=== PATIENT | male | born 1975 | race Caucasian/White ===

== ENCOUNTER 2020-06-19 18:41 | Emergency (ER) | payer OTHER ==
[~2020-06-19] VITALS: Ht 175.3 cm; Wt 86.6 kg
[2020-06-19] MEDS ORDERED: ASPI81TA86 PO (19:04)
[2020-06-19] MEDS ORDERED: HYDR25TAB PO (19:04)
[2020-06-19] MEDS ORDERED: LISI30TA4 PO (19:04)
[2020-06-19 19:16] LABS: BASO % 0.7 % (0.0-1.0); EOS # 0.1 10^3/uL (0.0-0.5); EOS % 2.3 % (0.0-3.0); HEMATOCRIT 43.1 % (42.0-52.0); HEMOGLOBIN 15.6 g/dl (13.5-17.5); LYMPH % 22.6 % (24.0-44.0); MEAN CORPUSCULAR HEMOGLOBIN 34.2 pg (27.0-33.0); MEAN CORPUSCULAR HGB CONC 36.2 g/dl (32.0-36.5); MEAN CORPUSCULAR VOLUME 94.5 fl (80.0-96.0); MONO # 0.5 10^3/uL (0.0-0.8); MONO % 11.1 % (0.0-5.0); NEUTROPHILS # 2.7 10^3/uL (1.5-8.5); NEUTROPHILS % 62.1 % (36.0-66.0); PLATELET COUNT, AUTOMATED 261 10^3/uL (150-450); RED BLOOD COUNT 4.56 10^6/uL (4.30-6.10); WHITE BLOOD COUNT 4.3 10^3/uL (4.0-10.0)
--- NOTE | 2020-06-19 19:20 | REPVR ---
PROCEDURE INFORMATION: Exam: XR Chest, 1 View Exam date and time: 06/19/2020 7:00 PM Age: 44 years old Clinical indication: Chest pain TECHNIQUE: Imaging protocol: XR of the chest Views: 1 view. COMPARISON: No relevant prior studies available. FINDINGS: Lungs: Unremarkable. No consolidation. No pulmonary edema. Pleural space: Unremarkable. No pleural effusion or pneumothorax is identified. Heart/Mediastinum: Unremarkable. No cardiomegaly. Bones/joints: Unremarkable. IMPRESSION: No acute findings. Electronically signed by: Brodie Velasquez On 06/19/2020 19:19:55 PM
[2020-06-19] MEDS ORDERED: MORPHINE 4 MG/ML 1ML VIAL/SYRINGE (J2270) IV ONE (19:30)
[2020-06-19 19:37] LABS: PROTHROMBIN TIME 13.4 SECONDS (11.8-14.0)
[2020-06-19 19:38] LABS: PARTIAL THROMBOPLASTIN TIME 28.1 SECONDS (25.0-38.4)
[2020-06-19 19:45] LABS: ALBUMIN 4.2 GM/DL (3.2-5.2); ALT/SGPT 319 U/L (12-78); BILIRUBIN,DIRECT 0.3 MG/DL (0.0-0.2); BILIRUBIN,TOTAL 0.6 MG/DL (0.2-1.0); BLOOD UREA NITROGEN 7 MG/DL (7-18); CALCIUM LEVEL 9.2 MG/DL (8.5-10.1); CARBON DIOXIDE LEVEL 27 MEQ/L (21-32); CHLORIDE LEVEL 93 MEQ/L (98-107); CK-MB VALUE MASS 2.6 NG/ML (<3.6); CPK CREATINE PHOSPHOKINASE 245 U/L (39-308); CREATININE FOR GFR 0.91 MG/DL (0.70-1.30); GLOMERULAR FILTRATION RATE > 60.0 (>60); GLUCOSE, FASTING 111 MG/DL (70-100); LIPASE 353 U/L (73-393); MB/CK RELATIVE INDEX 1.06 (< OR =4); POTASSIUM SERUM 3.5 MEQ/L (3.5-5.1); SODIUM LEVEL 128 MEQ/L (136-145); TOTAL PROTEIN 8.5 GM/DL (6.4-8.2); TROPONIN I < 0.02 NG/ML (< 0.10)
[2020-06-19] MEDS ORDERED: ISOVUE-370 76% 100ML VIAL As Ordered ONE (19:58)
--- NOTE | 2020-06-19 20:50 | REPVR ---
PROCEDURE INFORMATION: Exam: CT Angiography Chest With Contrast Exam date and time: 06/19/2020 8:08 PM Age: 44 years old Clinical indication: Chest pain TECHNIQUE: Imaging protocol: Computed tomographic angiography of the chest with intravenous contrast. 3D rendering (Not supervised by radiologist): MIP and/or 3D reconstructed images were created by the technologist. Radiation optimization: All CT scans at this facility use at least one of these dose optimization techniques: automated exposure control; mA and/or kV adjustment per patient size (includes targeted exams where dose is matched to clinical indication); or iterative reconstruction. Contrast material: ISOVUE 370; Contrast volume: 100 ml; Contrast route: INTRAVENOUS (IV); COMPARISON: CR PORTABLE CHEST X-RAY 06/19/2020 6:55 PM FINDINGS: Pulmonary arteries: No pulmonary embolism. Aorta: The thoracic aorta is intact and patent. There is no thoracic aortic aneurysm, pseudoaneurysm, penetrating atherosclerotic ulcer, intramural hematoma, or dissection. Great vessels off aortic arch: The brachiocephalic artery, imaged proximal portions of the common carotid arteries, imaged proximal portions of the vertebral arteries, and subclavian arteries are intact. No stenosis or occlusion of these vessels is noted. Tracheobronchial tree: Intact and patent. Lungs: There is a small sheet like opacity in the right upper lobe (image 31 of the axial series 402), which is felt to represent atelectasis. There is dependent atelectasis in the right lower lobe. The lungs are otherwise clear. Pleural space: Normal. No pneumothorax or pleural effusion. Heart: No cardiomegaly. No pericardial effusion. The ratio of the diameter of the right ventricle to the diameter of the left ventricle measures less than 1, which is within normal limits and there is no evidence for a right ventricular strain. Mediastinal space: No mediastinal mass, fluid collection, or pneumomediastinum. Lymph nodes: There are subcentimeter mediastinal lymph nodes. However, no abnormally enlarged lymph nodes measuring greater than 1 cm in short axis are noted. Diaphragm: Intact. Bones/joints: There is no fracture or dislocation. No suspicious osteolytic or osteoblastic lesion. Soft tissues: Unremarkable. No soft tissue fluid collection. Other findings: Refer to the CT abdomen and pelvis report on 06/19/2020 for details regarding the abdominal and pelvic findings. IMPRESSION: 1. No acute findings in the chest. No pulmonary embolism. 2. No thoracic aortic aneurysm, pseudoaneurysm, intramural hematoma, penetrating atherosclerotic ulcer, or dissection. Electronically signed by: Brodie Velasquez On 06/19/2020 20:49:58 PM
--- NOTE | 2020-06-19 20:50 | REPVR ---
PROCEDURE INFORMATION: Exam: CT Abdomen And Pelvis With Contrast Exam date and time: 06/19/2020 8:08 PM Age: 44 years old Clinical indication: Abdominal pain; Generalized; Additional info: Chest pain TECHNIQUE: Imaging protocol: Computed tomography of the abdomen and pelvis with intravenous contrast. Radiation optimization: All CT scans at this facility use at least one of these dose optimization techniques: automated exposure control; mA and/or kV adjustment per patient size (includes targeted exams where dose is matched to clinical indication); or iterative reconstruction. Contrast material: ISOVUE 370; Contrast volume: 100 ml; Contrast route: INTRAVENOUS (IV); COMPARISON: No relevant prior studies available. FINDINGS: Lungs: Refer to the CTA chest report on 06/19/2020 for details. Heart: Refer to the CTA chest report on 06/19/2020 for details. Diaphragm: Intact. Liver: The attenuation of the liver is more than 40 Hounsfield units lower in attenuation compared to the spleen, which is compatible with fatty liver infiltration. No liver lesion. The contour of the liver is smooth. No hepatomegaly. Gallbladder and bile ducts: No calcified gallstones are noted. No gallbladder wall thickening, pericholecystic fluid, or pericholecystic inflammatory changes are identified. No dilation of the bile ducts is noted. No calcified stones are seen in the common bile duct. There is focal fatty sparing adjacent to the gallbladder fossa. Pancreas: Normal. No dilation of the main pancreatic duct is noted. There is no inflammatory fat stranding around the pancreas to suggest acute pancreatitis. Spleen: The spleen is heterogeneous in appearance, which is likely secondary to the arterial timing of the contrast bolus. No splenomegaly. Adrenals: Normal. No adrenal mass is noted. Kidneys and ureters: The kidneys are normal in appearance. No renal lesion is noted. No stones are noted in the kidneys or ureters. There is no hydronephrosis or hydroureter. There are no wedge-shaped areas of low attenuation in the kidneys to suggest pyelonephritis. There is no renal abscess or perinephric fluid collection. Stomach and bowel: The stomach and small bowel are unremarkable. There is mild colonic diverticulosis without evidence for diverticulitis. There is no evidence for a bowel obstruction, colitis, pneumatosis intestinalis, intussusception, volvulus, or perforated viscus. Appendix: Normal. There is no evidence for appendicitis. Intraperitoneal space: No free air. No ascites. No asbcess. Retroperitoneal space: No fluid collection. No mass. Vasculature: The abdominal aorta is patent, normal in caliber, and there is no dissection. The iliac arteries, common femoral arteries, renal arteries, celiac artery, superior mesenteric artery, and inferior mesenteric artery are patent. There are mild atherosclerotic calcifications. The portal veins, splenic vein, superior mesenteric vein, inferior mesenteric vein, and renal veins are patent. Lymph nodes: No enlarged lymph nodes. Bladder: The partially distended urinary bladder is unremarkable. No stones or masses are seen in the bladder. Reproductive: The prostate gland and seminal vesicles are unremarkable. Bones/joints: There is no fracture or dislocation. No suspicious osteolytic or osteoblastic lesion. Soft tissues: Unremarkable. No hernia. IMPRESSION: 1. No acute findings in the abdomen or pelvis. 2. Fatty liver. 3. Mild colonic diverticulosis without evidence for diverticulitis. Electronically signed by: Brodie Velasquez On 06/19/2020 20:49:48 PM
[2020-06-19] MEDS ORDERED: KETOROLAC 30 MG/ML 1ML VIAL IV ONE (21:15)
--- NOTE | 2020-06-19 21:48 | REPVR ---
PROCEDURE INFORMATION: Exam: CT Lumbar Spine Without Contrast Exam date and time: 06/19/2020 9:28 PM Age: 44 years old Clinical indication: Pain TECHNIQUE: Imaging protocol: Computed tomography images of the lumbar spine without contrast. Radiation optimization: All CT scans at this facility use at least one of these dose optimization techniques: automated exposure control; mA and/or kV adjustment per patient size (includes targeted exams where dose is matched to clinical indication); or iterative reconstruction. COMPARISON: No relevant prior studies available. FINDINGS: Vertebrae: There are 5 non-rib bearing lumbar type vertebral bodies. The alignment of the lumbar spine is within normal limits. There is no fracture, pars defect, or subluxation. The vertebral body heights are preserved. Incidental note is made of congenital failure of fusion of the spinous process of L5 (spina bifida occulta). T10-T11: The disc height is preserved. No disc herniation, spinal canal stenosis, or neural foraminal stenosis is noted. The facet joints are unremarkable. T11-T12: The disc height is preserved. No disc herniation, spinal canal stenosis, or neural foraminal stenosis is noted. The facet joints are unremarkable. T12-L1: The disc height is preserved. No disc herniation is noted. No spinal canal stenosis, lateral recess stenosis, or neural foraminal stenosis is identified. The facet joints are unremarkable. L1-L2: The disc height is preserved. No disc herniation is noted. No spinal canal stenosis, lateral recess stenosis, or neural foraminal stenosis is identified. The facet joints are unremarkable. L2-L3: The disc height is preserved. No disc herniation is noted. No spinal canal stenosis, lateral recess stenosis, or neural foraminal stenosis is identified. The facet joints are unremarkable. There are endplate spurs projecting anteriorly. L3-L4: The disc height is preserved. No disc herniation is noted. No spinal canal stenosis, lateral recess stenosis, or neural foraminal stenosis is identified. The facet joints are unremarkable. L4-L5: The disc height is preserved. There is a right foraminal protrusion and mild osteoarthritis of the left facet joint. Mild right neural foraminal stenosis is present. No spinal canal stenosis, lateral recess stenosis, or left neural foraminal stenosis is identified. The facet joints are unremarkable. L5-S1: The disc height is preserved. No disc herniation is noted. No spinal canal stenosis, lateral recess stenosis, or neural foraminal stenosis is identified. The facet joints are unremarkable. Vasculature: No abdominal aortic aneurysm. Soft tissues: Unremarkable. No soft tissue fluid collection is noted. Limited liver: There is fatty infiltration of the liver. IMPRESSION: 1. No fracture or subluxation in the lumbar spine. 2. L4-L5: Mild right neural foraminal stenosis secondary to a right foraminal protrusion. Electronically signed by: Brodie Velasquez On 06/19/2020 21:47:42 PM
[2020-06-19 23:27] LABS: CK-MB VALUE MASS 2.1 NG/ML (<3.6); CPK CREATINE PHOSPHOKINASE 217 U/L (39-308); MB/CK RELATIVE INDEX 0.97 (< OR =4); TROPONIN I < 0.02 NG/ML (< 0.10)
[2020-06-19] MEDS ORDERED: NS 1,000 ML IV ONE (23:45)
[2020-06-20] MEDS ORDERED: traMADol 50 MG TAB (BULK 4 TAB ED) PO ONE (01:15)
[2020-06-20 02:17] VITALS: BP 126/71
--- NOTE | 2020-06-28 09:44 | ECGEPIP ---
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
--- NOTE | 2020-06-28 10:30 | ECGEPIP ---
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
== END 2020-06-20 02:19 | disposition home or self-care (01) ==
LOC: M ED 18:41
DX: R07.89 Other chest pain (principal); M54.5 Low back pain; R74.0 Nonspecific elevation of levels of transaminase and lactic acid dehydrogenase [LDH]; I10 Essential (primary) hypertension; Z79.899 Other long term (current) drug therapy; Z79.82 Long term (current) use of aspirin; F17.210 Nicotine dependence, cigarettes, uncomplicated
CPT/HCPCS: 71045; 71275; 72131; 74177; 80048; 80076; 82550; 82553; 83690; 85025; 85610; 85730; 93005; 93041; 94760; 96361; 96374; 96375; 99284; J1885; J2270; Q9967

== ENCOUNTER 2020-09-04 17:24 | Emergency (ER) | payer OTHER ==
[~2020-09-04] VITALS: Ht 175.3 cm; Wt 95.8 kg
[~2020-09-04 17:24] MED LIST: ASPI81TA86 PO; HYDR25TAB PO; LISI30TA4 PO
[2020-09-04] MEDS ORDERED: HYDR50TA70 PO (17:34)
[2020-09-04] MEDS ORDERED: ACAM0.05 PO (17:34)
[2020-09-04] MEDS ORDERED: PANT40TA29 (17:34)
[2020-09-04] MEDS ORDERED: BUSP10TA PO (17:34)
[2020-09-04] MEDS ORDERED: SUCR1TAB56 PO (17:34)
[2020-09-04] MEDS ORDERED: TAB-TAB3 PO (17:34)
[2020-09-04] MEDS ORDERED: FOLI1TAB11 PO (17:34)
[2020-09-04 18:13] LABS: BASO # 0.1 10^3/uL (0.0-0.2); BASO % 0.8 % (0.0-1.0); EOS # 0.2 10^3/uL (0.0-0.5); EOS % 2.9 % (0.0-3.0); HEMATOCRIT 41.1 % (42.0-52.0); HEMOGLOBIN 13.8 g/dl (13.5-17.5); LYMPH # 1.8 10^3/uL (1.5-5.0); LYMPH % 27.4 % (24.0-44.0); MEAN CORPUSCULAR HEMOGLOBIN 32.9 pg (27.0-33.0); MEAN CORPUSCULAR HGB CONC 33.6 g/dl (32.0-36.5); MEAN CORPUSCULAR VOLUME 97.9 fl (80.0-96.0); MONO # 0.6 10^3/uL (0.0-0.8); MONO % 9.1 % (0.0-5.0); NEUTROPHILS # 3.8 10^3/uL (1.5-8.5); NEUTROPHILS % 58.9 % (36.0-66.0); PLATELET COUNT, AUTOMATED 325 10^3/uL (150-450); WHITE BLOOD COUNT 6.5 10^3/uL (4.0-10.0)
[2020-09-04 18:26] LABS: INR 1.02; PARTIAL THROMBOPLASTIN TIME 29.3 SECONDS (24.2-38.5); PROTHROMBIN TIME 13.6 SECONDS (12.5-14.3)
[2020-09-04] MEDS ORDERED: MORPHINE 4 MG/ML 1ML VIAL/SYRINGE (J2270) IV ONE (18:30)
[2020-09-04] MEDS ORDERED: PANTOPRAZOLE 40MG VIAL (C9113 PER 1) IV ONE (18:30)
[2020-09-04] MEDS ORDERED: NS 1,000 ML IV ONE (18:30)
[2020-09-04 18:44] LABS: ALBUMIN 3.9 GM/DL (3.2-5.2); ALT/SGPT 246 U/L (12-78); AMYLASE 38 U/L (25-115); BILIRUBIN,DIRECT 0.1 MG/DL (0.0-0.2); BILIRUBIN,TOTAL 0.4 MG/DL (0.2-1.0); ETHYL ALCOHOL (ETHANOL) < 0.003 % (0.000-0.010); LIPASE 225 U/L (73-393); TOTAL PROTEIN 7.6 GM/DL (6.4-8.2)
[2020-09-04] MEDS ORDERED: ISOVUE-370 76% 100ML VIAL As Ordered ONE (18:46)
--- NOTE | 2020-09-04 20:31 | REPVR ---
PROCEDURE INFORMATION: Exam: CT Abdomen And Pelvis With Contrast Exam date and time: 09/04/2020 6:59 PM Age: 44 years old Clinical indication: Abdominal pain; Generalized; Additional info: Severe abdominal pain TECHNIQUE: Imaging protocol: Computed tomography of the abdomen and pelvis with intravenous contrast. Radiation optimization: All CT scans at this facility use at least one of these dose optimization techniques: automated exposure control; mA and/or kV adjustment per patient size (includes targeted exams where dose is matched to clinical indication); or iterative reconstruction. Contrast material: ISOVUE 370; Contrast volume: 100 ml; Contrast route: INTRAVENOUS (IV); COMPARISON: CT ABD/PEL W/IV CONTRAST ONLY 06/19/2020 7:57 PM FINDINGS: Lungs: The imaged portions of the lung bases are clear. The lungs were not fully imaged. Heart: No cardiomegaly or pericardial effusion. Mediastinal space: There is fluid in the esophagus, which can be seen with gastroesophageal reflux. Liver: The attenuation of the liver is more than 40 Hounsfield units lower in attenuation compared to the spleen, which is compatible with fatty liver infiltration. No liver lesion. The contour of the liver is smooth. No hepatomegaly. Gallbladder and bile ducts: No calcified gallstones are noted. No gallbladder wall thickening, pericholecystic fluid, or pericholecystic inflammatory changes are identified. No dilation of the bile ducts is noted. No calcified stones are seen in the common bile duct. Pancreas: Normal. No dilation of the main pancreatic duct is noted. There is no inflammatory fat stranding around the pancreas to suggest acute pancreatitis. Spleen: Normal. No splenomegaly is noted. Adrenal glands: Normal. No adrenal mass is noted. Kidneys and ureters: The kidneys are normal in appearance. No renal lesion is noted. No stones are noted in the kidneys or ureters. There is no hydronephrosis or hydroureter. There are no wedge-shaped areas of low attenuation in the kidneys to suggest pyelonephritis. There is no renal abscess or perinephric fluid collection. Stomach and bowel: The stomach is distended with ingested material. The small bowel is unremarkable. There is mild colonic diverticulosis without evidence for diverticulitis. There is no evidence for a bowel obstruction, colitis, pneumatosis intestinalis, intussusception, volvulus, or perforated viscus. There is a moderate amount of formed stool in the cecum, ascending colon, and transverse colon. A mild amount of formed stool is present in the descending colon and rectosigmoid. Appendix: Normal. There is no evidence for appendicitis. Intraperitoneal space: No free air. No ascites. No asbcess. Retroperitoneal space: No fluid collection. No mass. Vasculature: The abdominal aorta is patent, normal in caliber, and there is no dissection. The iliac arteries, common femoral arteries, renal arteries, celiac artery, superior mesenteric artery, and inferior mesenteric artery are patent. There are mild atherosclerotic calcifications. The portal veins, splenic vein, superior mesenteric vein, inferior mesenteric vein, and renal veins are patent. Lymph nodes: No enlarged lymph nodes. Urinary bladder: The distended urinary bladder is normal in appearance. No stones or masses are seen in the bladder. Reproductive: The prostate gland and seminal vesicles are unremarkable. Bones/joints: There is no fracture or dislocation. No suspicious osteolytic or osteoblastic lesion. Soft tissues: There is mild edema in the subcutaneous tissues lateral to both hips. No hernia or soft tissue fluid collection is noted. IMPRESSION: 1. Fluid in the esophagus, which can be seen with gastroesophageal reflux. 2. Mild colonic diverticulosis without evidence for diverticulitis. 3. Moderate amount of formed stool in the cecum, ascending colon, and transverse colon, and a mild amount of formed stool in descending colon and rectosigmoid. No bowel obstruction. 4. Fatty liver. Electronically signed by: Brodie Velasquez On 09/04/2020 20:31:04 PM
[2020-09-04] MEDS ORDERED: METOCLOPRAMIDE INJ 10MG/2ML VIAL (J2765 PER 1) IV ONE (20:45)
[2020-09-04] MEDS ORDERED: DICYCLOMINE INJ 20MG/2ML (J0500) IM ONE (20:45)
[2020-09-04] MEDS ORDERED: PROT1TAB2 PO (21:18)
[2020-09-04 21:23] VITALS: BP 124/73
[2020-09-04] MEDS ORDERED: GI COCKTAIL 50ML BTL(HYOSCYAMINE/MAALOX/LIDOCAINE VISCOUS)(1:3:1) PO ONE (21:30)
--- NOTE | 2020-09-05 06:36 | ECGEPIP ---
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
--- NOTE | 2020-09-05 14:39 | ED PDOC ---
Post-Departure Follow-Up dr pito alas and dr phelps faxed formal report of ct abd/p for fu Bon Espinoza MD Sep 05, 2020 14:39
[2020-09-09] MEDS ORDERED: MIRT-62 PO (12:58)
== END 2020-09-04 21:33 | disposition home or self-care (01) ==
LOC: M ED 17:24
DX: K29.70 Gastritis, unspecified, without bleeding (principal); K76.0 Fatty (change of) liver, not elsewhere classified; R10.13 Epigastric pain; R00.0 Tachycardia, unspecified; F10.10 Alcohol abuse, uncomplicated; K21.9 Gastro-esophageal reflux disease without esophagitis; I10 Essential (primary) hypertension; Z87.891 Personal history of nicotine dependence; Z79.899 Other long term (current) drug therapy
CPT/HCPCS: 74177; 80047; 80076; 81001; 82150; 83605; 83690; 85025; 85610; 85730; 93005; 96361; 96372; 96374; 96375; 99284; C9113; G0480; J0500; J2270; J2765; Q9967

== ENCOUNTER 2020-09-06 15:32 | Emergency (ER) | payer OTHER ==
[~2020-09-06] VITALS: Ht 175.3 cm; Wt 94.2 kg
[~2020-09-06 15:32] MED LIST changes: +ACAM0.05 PO; +BUSP10TA PO; +FOLI1TAB11 PO; +HYDR50TA70 PO; +PANT40TA29; +PROT1TAB2 PO; +SUCR1TAB56 PO; +TAB-TAB3 PO
[2020-09-06] MEDS ORDERED: MORPHINE 4 MG/ML 1ML VIAL/SYRINGE (J2270) IV ONE (16:00)
[2020-09-06] MEDS ORDERED: NS 1,000 ML IV ONE (16:00)
[2020-09-06] MEDS ORDERED: ONDANSETRON 4MG/2ML VIAL IV ONE (16:00)
[2020-09-06 16:15] VITALS: BP 143/90
--- NOTE | 2020-09-06 16:34 | REP ---
INDICATION: abdominal pain COMPARISON: 06/19/2020, 08/19/2020 TECHNIQUE: Portable AP view of the chest FINDINGS: The mediastinum and cardiac silhouette are stable and within normal limits for portable technique. The lung ruvalcaba are clear without acute focal consolidation, effusion, or pneumothorax. Skeletal structures are intact. IMPRESSION: No focal consolidation or effusion. <Electronically signed by Miltno Fung > 09/06/20 [id number]
[2020-09-06 16:38] LABS: BASO # 0.1 10^3/uL (0.0-0.2); EOS # 0.2 10^3/uL (0.0-0.5); HEMATOCRIT 41.9 % (42.0-52.0); HEMOGLOBIN 14.5 g/dl (13.5-17.5); LYMPH # 1.9 10^3/uL (1.5-5.0); LYMPH % 28.1 % (24.0-44.0); MEAN CORPUSCULAR HEMOGLOBIN 33.2 pg (27.0-33.0); MEAN CORPUSCULAR HGB CONC 34.6 g/dl (32.0-36.5); MEAN CORPUSCULAR VOLUME 95.9 fl (80.0-96.0); MONO # 0.5 10^3/uL (0.0-0.8); MONO % 6.7 % (0.0-5.0); NEUTROPHILS # 4.1 10^3/uL (1.5-8.5); NEUTROPHILS % 60.5 % (36.0-66.0); PLATELET COUNT, AUTOMATED 355 10^3/uL (150-450); RED BLOOD COUNT 4.37 10^6/uL (4.30-6.10); WHITE BLOOD COUNT 6.7 10^3/uL (4.0-10.0)
[2020-09-06 16:51] LABS: INR 1.04; PARTIAL THROMBOPLASTIN TIME 30.3 SECONDS (24.2-38.5); PROTHROMBIN TIME 13.8 SECONDS (12.5-14.3)
[2020-09-06] MEDS ORDERED: ISOVUE-370 76% 100ML VIAL As Ordered ONE (16:54)
[2020-09-06 17:03] LABS: ALBUMIN 3.9 GM/DL (3.2-5.2); BILIRUBIN,DIRECT 0.1 MG/DL (0.0-0.2); BILIRUBIN,TOTAL 0.4 MG/DL (0.2-1.0); TOTAL PROTEIN 7.9 GM/DL (6.4-8.2)
--- NOTE | 2020-09-06 17:32 | REPVR ---
PROCEDURE INFORMATION: Exam: CT Angiography Chest With Contrast Exam date and time: 09/06/2020 5:18 PM Age: 44 years old Clinical indication: Chest pain; Additional info: Midepigastric pain TECHNIQUE: Imaging protocol: Computed tomographic angiography of the chest with intravenous contrast. 3D rendering (Not supervised by radiologist): MIP and/or 3D reconstructed images were created by the technologist. Radiation optimization: All CT scans at this facility use at least one of these dose optimization techniques: automated exposure control; mA and/or kV adjustment per patient size (includes targeted exams where dose is matched to clinical indication); or iterative reconstruction. Contrast material: ISOVUE 370; Contrast volume: 100 ml; Contrast route: INTRAVENOUS (IV); COMPARISON: CT ANGIO CHEST 06/19/2020 7:57 PM FINDINGS: Pulmonary arteries: No filling defects within the main, lobar, segmental, and subsegmental pulmonary arterial branches. Aorta: No aortic aneurysm. No evidence of dissection. Lungs: Nonspecific focal region of subpleural ground-glass opacification in the lateral right lung apex, appearance most suggestive of atelectatic change. Similar finding present within the different region of the right upper lobe on prior CTA chest from 06/19/2020. Pleural space: No pleural effusion or pneumothorax. Heart: Unremarkable. No pericardial effusion. Lymph nodes: No enlarged lymph nodes. Bones/joints: No acute osseus lesion or fracture. Soft tissues: Unremarkable. IMPRESSION: 1. No CTA evidence of pulmonary embolism. 2. Nonspecific focal region of subpleural ground-glass opacification in the lateral right lung apex, appearance most suggestive of atelectatic change. Electronically signed by: Mic Garcia On 09/06/2020 17:31:34 PM
--- NOTE | 2020-09-06 17:35 | REPVR ---
PROCEDURE INFORMATION: Exam: CT Abdomen And Pelvis With Contrast Exam date and time: 09/06/2020 5:18 PM Age: 44 years old Clinical indication: Abdominal pain; Epigastric; Additional info: Midepigastric pain TECHNIQUE: Imaging protocol: Computed tomography of the abdomen and pelvis with intravenous contrast. Radiation optimization: All CT scans at this facility use at least one of these dose optimization techniques: automated exposure control; mA and/or kV adjustment per patient size (includes targeted exams where dose is matched to clinical indication); or iterative reconstruction. Contrast material: ISOVUE 370; Contrast volume: 100 ml; Contrast route: INTRAVENOUS (IV); COMPARISON: CT ABD/PEL W/IV CONTRAST ONLY 09/04/2020 6:56 PM FINDINGS: Liver: Diffuse hepatic steatosis. Gallbladder and bile ducts: Unremarkable. No ductal dilation. Pancreas: Unremarkable. No ductal dilation. Spleen: Unremarkable. Adrenal glands: Normal. No mass. Kidneys and ureters: No hydronephrosis or stones. Stomach and bowel: Stomach is unremarkable. No small bowel obstruction. Large bowel is unremarkable. Appendix: The appendix is normal. Intraperitoneal space: No pneumoperitoneum. No significant fluid collection. Vasculature: Mild atherosclerotic calcifications of the aorta and major branches. Lymph nodes: No enlarged lymph nodes. Urinary bladder: Unremarkable as visualized. Reproductive: Unremarkable as visualized. Bones/joints: No acute osseus lesion or fracture. Soft tissues: Unremarkable. IMPRESSION: Diffuse hepatic steatosis. Otherwise, no acute findings in the abdomen and pelvis. Correlate clinically with LFTs. Electronically signed by: Mic Garcia On 09/06/2020 17:34:50 PM
[2020-09-06] MEDS ORDERED: LORazepam 1 MG TAB PO STA (18:12)
[2020-09-06] MEDS ORDERED: ATIV1TAB7 PO (18:16)
--- NOTE | 2020-09-06 22:10 | ECGEPIP ---
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
[2020-09-07] MEDS ORDERED: PANT-23 PO (20:33)
[2020-09-07] MEDS ORDERED: LORA1TAB4 PO (20:33)
[2020-09-09] MEDS ORDERED: MIRT-62 PO (12:58)
== END 2020-09-06 18:53 | disposition home or self-care (01) ==
LOC: M ED 15:32
DX: R10.10 Upper abdominal pain, unspecified (principal); K29.70 Gastritis, unspecified, without bleeding; F41.9 Anxiety disorder, unspecified; R00.0 Tachycardia, unspecified; R74.01 Elevation of levels of liver transaminase levels; I10 Essential (primary) hypertension; K21.9 Gastro-esophageal reflux disease without esophagitis; F10.10 Alcohol abuse, uncomplicated; Z79.899 Other long term (current) drug therapy
CPT/HCPCS: 71045; 71275; 74177; 80047; 80076; 81001; 83605; 83690; 85025; 85610; 85730; 87040; 93005; 93041; 96361; 96374; 96375; 99284; J2270; J2405; Q9967

== ENCOUNTER 2020-09-07 14:06 | Inpatient (IN) | payer OTHER ==
[~2020-09-07] VITALS: Ht 175.3 cm; Wt 92.5 kg
[~2020-09-07 14:06] MED LIST changes: +ATIV1TAB7 PO
[2020-09-07 15:32] LABS: HEMATOCRIT 41.3 % (42.0-52.0); HEMOGLOBIN 14.1 g/dl (13.5-17.5); MEAN CORPUSCULAR HEMOGLOBIN 32.9 pg (27.0-33.0); MEAN CORPUSCULAR HGB CONC 34.1 g/dl (32.0-36.5); MEAN CORPUSCULAR VOLUME 96.5 fl (80.0-96.0); PLATELET COUNT, AUTOMATED 327 10^3/uL (150-450); RED BLOOD COUNT 4.28 10^6/uL (4.30-6.10)
[2020-09-07] MEDS ORDERED: LORazepam 1 MG TAB PO STA (15:54)
[2020-09-07 16:04] LABS: ACETAMINOPHEN LEVEL < 2.0 UG/ML (10.0-30.0); ALBUMIN 3.7 GM/DL (3.2-5.2); ALT/SGPT 233 U/L (12-78); AMPHETAMINES LEVEL URINE NEGATIVE (NEGATIVE); BARBITURATES URINE NEGATIVE (NEGATIVE); BENZODIAZEPINES URINE POSITIVE (NEGATIVE); BILIRUBIN,DIRECT 0.2 MG/DL (0.0-0.2); BILIRUBIN,TOTAL 0.6 MG/DL (0.2-1.0); BLOOD UREA NITROGEN 11 MG/DL (7-18); CALCIUM LEVEL 9.3 MG/DL (8.5-10.1); CANNABINOIDS URINE POSITIVE (NEGATIVE); CARBON DIOXIDE LEVEL 29 MEQ/L (21-32); CHLORIDE LEVEL 102 MEQ/L (98-107); CK-MB VALUE MASS 1.7 NG/ML (<3.6); COCAINE METABOLITE URINE NEGATIVE (NEGATIVE); CPK CREATINE PHOSPHOKINASE 299 U/L (39-308); CREATININE FOR GFR 1.03 MG/DL (0.70-1.30); ETHYL ALCOHOL (ETHANOL) < 0.003 % (0.000-0.010); GLOMERULAR FILTRATION RATE > 60.0 (>60); GLUCOSE, FASTING 86 MG/DL (70-100); LIPASE 118 U/L (73-393); MB/CK RELATIVE INDEX 0.57 (< OR =4); METHADONE URINE NEGATIVE (NEGATIVE); OPIATES URINE POSITIVE (NEGATIVE); PHENCYCLIDINE URINE NEGATIVE (NEGATIVE); SALICYLATE LEVEL 2.1 MG/DL (5.0-30.0); SODIUM LEVEL 137 MEQ/L (136-145); TOTAL PROTEIN 7.5 GM/DL (6.4-8.2); TROPONIN I < 0.02 NG/ML (< 0.10)
[2020-09-07] MEDS ORDERED: ACETAMINOPHEN 325 MG TAB PO ONE (18:00)
[2020-09-07] MEDS ORDERED: ACETAMINOPHEN TAB 650MG DOSE (2X325MG) PO PRN (19:45)
[2020-09-07] MEDS ORDERED: MAALOX 30 ML SUSP *UDC PO PRN (19:45)
[2020-09-07] MEDS ORDERED: MOM 30ML SUSPENSION UDC PO PRN (19:45)
[2020-09-07] MEDS ORDERED: OLANZapine ORAL DISINTEGRATING TAB 5MG PO PRN (19:45)
[2020-09-07] MEDS ORDERED: LORA1TAB4 PO (20:33)
[2020-09-07] MEDS ORDERED: PANT-23 PO (20:33)
[2020-09-07 21:34] VITALS: BP 114/73
--- NOTE | 2020-09-07 22:10 | ECGEPIP ---
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
[2020-09-07] MEDS: lisinopriL 10 MG TAB PO SCH (23:27)
[2020-09-07] MEDS: busPIRone 10 MG TAB PO SCH (23:27)
[2020-09-07] MEDS: PANTOPRAZOLE 40MG TAB (PROTONIX) PO SCH (23:27)
[2020-09-08] MEDS: ACAMPROSATE CALCIUM 333 MG TABLET (CAMPRAL) PO SCH ×4 (00:08→20:37)
[2020-09-08] MEDS: traZODone 50 MG TAB PO PRN ×2 (00:14→20:38)
[2020-09-08] MEDS: hydrOXYzine 50 MG TAB PO PRN (00:14)
[2020-09-08 06:22] VITALS: BP 120/61
[2020-09-08] MEDS: SUCRALFATE 1 GM TAB PO SCH ×3 (06:30→16:59)
[2020-09-08] MEDS: PANTOPRAZOLE 40MG TAB (PROTONIX) PO SCH ×2 (08:31→20:38)
[2020-09-08] MEDS: busPIRone 10 MG TAB PO SCH ×2 (08:31→20:38)
[2020-09-08] MEDS: FOLIC ACID 1 MG TAB PO SCH (08:31)
[2020-09-08] MEDS: hydroCHLOROthiazide 25 MG TAB PO SCH (08:32)
[2020-09-08] MEDS: NICOTINE 21MG/24HR 1 EA TRANSDERMAL TD SCH (09:37)
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
[2020-09-08] MEDS ORDERED: LORazepam 1 MG TAB PO PRN (11:15)
--- NOTE | 2020-09-08 11:49 | HPEPDOC ---
[facility] Medical History & Physical Date of Admission Sep 08, 2020 Date of Service: Sep 08, 2020 History and Physical Chief complaint: Presented to [facility] for suicidal ideation History of present illness: Patient is a 44-year-old male with a PMHx of HTN, Anxiety / Depression and GERD who presented to the emergency room with increased anxiety and panic a ttacks. Patient was admitted to the inpatient mental health unit under the care of psychiatry. Hospitalist service was called for medical evaluation. Patient reports a mild headache but denies any nausea, vomiting, chest pain, shortness breath, palpitations, abdominal pain consultation, diarrhea, or urinary discomfort. Patient reports his appetite has been fairly normal, but has noted an increase in his weight. Past Medical History: HTN, Anxiety / Depression and GERD Past Surgical History: Tonsils and adenoid resection Multiple broken bones Allergies: See below Medications: See below Family History: - Mother with history of diabetes and bipolar disorder - Father with reported psychiatric illness Social History: - Denies the use of illicit drugs; patient reports that he quit smoking 14 years ago but was a smoker of 30 years at one D - Patient also reports that he quit alcohol and was recently at a detox center and reports he was discharged last , has abstained from alcohol since then - Denies recent travel or sick contacts - Lives with [employer] - Occupation; currently unemployed Review of Systems: 10 point review of systems complete, all negative otherwise stated in HPI Physical exam: - Vitals: BP [120/61], HR [85], RR [18], Sat [100%RA], Temp [98.1F] - General: Lying in bed, Speaking in full sentences, AAOx3 - HEENT: NC, AT, PERRLA - CVS: RRR, +S1S2, - Murmurs / rubs / gallops - Lungs: Fair air entry bilaterally, No appreciable wheezing / rales / rhonchi - Abdomen: Soft, Non-distended, Non-tender, - Extremities: No lower extremity edema, No calf tenderness - Neuro: No focal motor or sensory deficit - Skin: No visible rashes Labs: See below Imaging: See below EKG: See below Assessment and Plan: Anxiety / Depression - Patient was admitted to the inpatient mental health unit under the care of psychiatry - Currently being managed by psychiatry Transaminitis - Patient has a history of transaminitis since 06/2020 - Ratio of AST:ALT of 1:2 - Will check hepatitis profile - Patient reports that he was recently in an alcohol detox center and was discharged last - Has abstained from alcohol use Hypertension - Blood pressures currently well controlled - c/w Lisinopril / HCTZ History of nicotine dependence - c/w Nicotine patch GERD - Will c/w Protonix and Carafate - Patient has been in the process of establishing care with gastroenterology as an outpatient for an EGD DVT prophylaxis - Will c/w early ambulation Female toy painter was present for the duration of this history and physical examination Thank you for this consultation; hospital service will now sign off, please reconsult as needed Vital Signs Vital Signs Date Time Temp Pulse Resp B/P (MAP) Pulse Ox O2 Delivery O2 Flow Rate FiO2 09/08/20 06:22 98.1 85 18 120/61 (80) 100 Room Air Laboratory Data Labs 24H Laboratory Tests 2 09/07/20 15:13: Nucleated Red Blood Cells % (auto) 0.0, Anion Gap 6L, Glomerular Filtration Rate > 60.0, Calcium Level 9.3, Total Bilirubin 0.6, Direct Bilirubin 0.2, Aspartate Amino Transf (AST/SGOT) 133H, Alanine Aminotransferase (ALT/SGPT) 233H, Alkaline Phosphatase 110, Total Creatine Kinase 299, Creatine Kinase MB 1.7, Creatine Kinase MB Relative Index 0.57, Troponin I < 0.02, Total Protein 7.5, Albumin 3.7, Albumin/Globulin Ratio 1.0, Lipase 118, Thyroid Stimulating Hormone (TSH) 1.710, Salicylates Level 2.1L, Urine Opiates Screen POSITIVEH, Urine Methadone Screen NEGATIVE, Acetaminophen Level < 2.0L, Urine Barbiturates Screen NEGATIVE, Urine Phencyclidine Screen NEGATIVE, Urine Amphetamines Screen NEGATIVE, Urine Benzodiazepines Screen POSITIVEH, Urine Cocaine Metabolite Screen NEGATIVE, Urine Cannabinoids Screen POSITIVEH, Ethyl Alcohol Level < 0.003 09/07/20 17:52: Coronavirus (COVID-19)(PCR) NEGATIVE CBC/BMP Laboratory Tests 09/07/20 15:13 Home Medications Scheduled Acamprosate Calcium (Acamprosate Calcium) 333 Mg Tablet.dr, 666 MG PO TID Buspirone HCl (Buspirone HCl) 10 Mg Tablet, 10 MG PO BID Folic Acid (Folic Acid) 1 Mg Tablet, 1 MG PO DAILY Hydrochlorothiazide (Hydrochlorothiazide) 25 Mg Tablet, 25 MG PO DAILY Lisinopril (Lisinopril) 30 Mg Tablet, 30 MG PO QHS Multivitamin (Tab-A-Juni) 1 Each Tablet, 1 TAB PO DAILY Pantoprazole Sodium (Pantoprazole Sodium) 40 Mg Tablet.dr, 40 MG PO BID Sucralfate (Sucralfate) 1 Gm Tablet, 1 GM PO AC Scheduled PRN Hydroxyzine HCl (Hydroxyzine HCl) 50 Mg Tablet, 50 MG PO DAILY PRN for ANXIETY Lorazepam (Lorazepam) 1 Mg Tablet, 1 MG PO BID PRN for ANXIETY Allergies Coded Allergies: No Known Allergies (Verified Allergy, Unknown, 06/19/20) DAISY CHAMORRO MD Sep 08, 2020 11:49
[2020-09-08] MEDS ORDERED: PROPRANOLOL 20 MG TAB PO ONE (12:00)
[2020-09-08 12:13] VITALS: BP 136/80
[2020-09-08 13:04] LABS: HEPATITIS B SURFACE ANTIGEN NEGATIVE (NEGATIVE)
[2020-09-08 13:32] LABS: HEPATITIS B CORE ANTIBODY IGM NEGATIVE (NEGATIVE)
[2020-09-08 13:34] LABS: HEPATITIS A ANTIBODY IGM NEGATIVE (NEGATIVE)
[2020-09-08 16:12] VITALS: BP 109/58
[2020-09-08] MEDS ORDERED: clonazePAM 1 MG TAB PO ONE (20:00)
[2020-09-08 20:40] VITALS: BP 124/83
[2020-09-08] MEDS: lisinopriL 10 MG TAB PO SCH (20:40)
[2020-09-08] MEDS ORDERED: MIRTAZAPINE 7.5MG PER 1/2 TABLET PO SCH (21:00)
[2020-09-09] MEDS ORDERED: MIRTAZAPINE 7.5MG PER 1/2 TABLET PO SCH
[2020-09-09] MEDS: SUCRALFATE 1 GM TAB PO SCH ×2 (06:33→12:01)
[2020-09-09 06:47] VITALS: BP 105/65
[2020-09-09] MEDS: hydroCHLOROthiazide 25 MG TAB PO SCH (08:23)
[2020-09-09] MEDS: busPIRone 10 MG TAB PO SCH (08:23)
[2020-09-09] MEDS: FOLIC ACID 1 MG TAB PO SCH (08:23)
[2020-09-09] MEDS: PANTOPRAZOLE 40MG TAB (PROTONIX) PO SCH (08:23)
[2020-09-09] MEDS: ACAMPROSATE CALCIUM 333 MG TABLET (CAMPRAL) PO SCH (08:23)
[2020-09-09] MEDS: NICOTINE 21MG/24HR 1 EA TRANSDERMAL TD SCH (08:23)
[2020-09-09] MEDS: hydrOXYzine 50 MG TAB PO PRN (12:01)
--- NOTE | 2020-09-09 12:37 | MHDSPDOC ---
[facility] Discharge Summary Discharge Summary DATE OF ADMISSION: Sep 07, 2020 at 19:33 DATE OF DISCHARGE:Sep 09, 2020 at 13:50 DISCHARGE DIAGNOSES: PTSD, chronic alcohol use disorder, unspecified CONSULTANTS INVOLVED:[ None (basic hospitalist screening)] REASON FOR ADMISSION & TREATMENT AND PROGRESS ON THE UNIT : . The patient was admitted on a voluntary status, he had no suicidal or homicidal ideation and reportedly did not meet criteria for involuntary care, he was admitted as he had requested, however he did quickly request a leave, he was detained for further treatment as his symptoms were quite intense. He was started on merit has been some .5 mg nightly with some positive effects. He was given a Klonopin taper as he was not appropriate for benzodiazepine treatments. Given that he has significant alcohol use problems and has only 3 weeks of sobriety from recent detox. He is given 1 mg of Klonopin to self taper off of Ativan which he intermittently uses. Subsequently, he made some improvements denied suicidality through the entirety of his admission, spoke to his significant other, of which there is no concerns of suicide, no access to firearms and discussed with her being a sober support person with disulfiram as well as discussed with the patient. We gave him a single dose of his mirtazapine as all pharmacies are closed on the date of discharge, with his significant other's understanding that she would help him take his disulfiram to improve his chances of sobriety as she reported that this was her primary concern for him. DISCHARGE ASSESSMENT[improved] Legal status considerations: The patient at the time of discharge did not meet criteria for involuntary admission/extension due to having a improved mental status exam, improved insight into the situation, They are engaged in the discharge process, as well as being friendly and amenable in behavioral control and havent been engaging in any observed concerning behavior or ideation recently. They decline voluntary extension/admission at this time and must be discharged in good ronaldo, as Im unable to make a case for holding the patient against their will. They may have historical risk factors of admissions and other interactions with psychiatry however, those are not modifiable from a clinical perspective. The patient will need to be discharged in good ronaldo. MENTAL STATUS EXAMINATION ON DISCHARGE: General: [Well dressed with good hygiene] Speech: [Spontaneous and fluid] Thought processes: [Linear and logical] Thought content: [Future orientated] Abstract reasoning, and computation: [Intact] Description of associations: [Intact] Description of abnormal or psychotic thoughts:[Denies any suicidal or homicidal ideation. Denies any auditory or visual hallucinations. Does not appear to be responding to internal stimuli. Does not appear to be endorsing any bizarre or paranoid ideation.] Judgment: improved Insight: improved Orientation: [Alert and orientated 3] Recent and remote memory: [Intact] Attention span and concentration: [Intact] Fund of knowledge: [Adequate] Mood: ["okay"] Affect: mildly anxious, but much improved PLAN/FOLLOWUP ARRANGEMENTS: Follow up appointments made (PCP and MH in 5 days of D/C date) and safety plan completed. Safety Planning aspects completed prior to discharge [Medication supplies limited to 7 days with 4 refills to prevent accumulation to OD]-with exception of disulfiram, which was given as a 30 day supply so that he would be more likely to continue with it as his fiance will help him take it consistently [Family contact completed, educated on safe practices, instructed on removal and mitigation of dangerous means] [RN reviewed crisis hotline information and other aspects to empower patient to access care in interim before next appointment.] The amount of time spent in the coordination of care for this patient was approximately 30 minutes. Vital Signs/I&Os Vital Signs Date Time Temp Pulse Resp B/P (MAP) Pulse Ox O2 Delivery O2 Flow Rate FiO2 09/09/20 06:47 97.5 86 18 105/65 (78) 97 Room Air Medications Scheduled Acamprosate Calcium (Acamprosate Calcium) 333 Mg Tablet.dr, 666 MG PO TID, (Reported) Buspirone HCl (Buspirone HCl) 10 Mg Tablet, 10 MG PO BID, (Reported) Disulfiram (Disulfiram) 250 Mg Tablet, 1 TAB PO DAILY for alcohol for 30 Days, #30 Folic Acid (Folic Acid) 1 Mg Tablet, 1 MG PO DAILY, (Reported) Hydrochlorothiazide (Hydrochlorothiazide) 25 Mg Tablet, 25 MG PO DAILY, (Reported) Lisinopril (Lisinopril) 30 Mg Tablet, 30 MG PO QHS, (Reported) Mirtazapine (Remeron) 15 Mg Tablet, 7.5 MG PO QHS for mood for 7 Days, #7 Multivitamin (Tab-A-Juni) 1 Each Tablet, 1 TAB PO DAILY, (Reported) Nicotine (Nicotine Patch) 21 Mg Patch.td24, 1 PATCH TD DAILY for tobacco for 30 Days, #30 Pantoprazole Sodium (Pantoprazole Sodium) 40 Mg Tablet.dr, 40 MG PO BID, (Reported) Sucralfate (Sucralfate) 1 Gm Tablet, 1 GM PO AC, (Reported) Scheduled PRN Hydroxyzine HCl (Hydroxyzine HCl) 50 Mg Tablet, 50 MG PO DAILY PRN for ANXIETY, (Reported) Allergies Coded Allergies: No Known Allergies (Verified Allergy, Unknown, 06/19/20) MARGARITA HUMPHRIES DO Sep 09, 2020 12:37
[2020-09-09] MEDS ORDERED: REME15TA PO (12:58)
[2020-09-09] MEDS ORDERED: NICO21PAT TD (12:58)
[2020-09-09] MEDS ORDERED: DISU250T PO (12:58)
== END 2020-09-09 13:50 | disposition home or self-care (01) | DRG 755 ==
LOC: M ED 14:06 → M ED INP 19:33 → M PSY 20:45
PROVIDERS: ADMIT Psychiatry & Neurology Psychiatry; ATTEND Psychiatry & Neurology Addiction Medicine
DX: F43.11 Post-traumatic stress disorder, acute (principal); F10.11 Alcohol abuse, in remission; R74.01 Elevation of levels of liver transaminase levels; I10 Essential (primary) hypertension; Z62.810 Personal history of physical and sexual abuse in childhood; K21.9 Gastro-esophageal reflux disease without esophagitis; Z87.891 Personal history of nicotine dependence; Z79.899 Other long term (current) drug therapy

== ENCOUNTER → 2020-12-22 | Outpatient (CLI) | payer OTHER ==
[~2020-12-22] MED LIST changes: +DISU250T PO; +HYDR-3490 PO; -HYDR25TAB PO; +LORA1TAB4 PO; +MIRT-62 PO; +NICO21PAT TD; +PANT-23 PO
[2020-12-22 12:57] LABS: BASO % 0.5 % (0.0-1.0); EOS # 0.1 10^3/uL (0.0-0.5); EOS % 1.2 % (0.0-3.0); HEMATOCRIT 42.3 % (42.0-52.0); HEMOGLOBIN 14.8 g/dl (13.5-17.5); LYMPH # 1.5 10^3/uL (1.5-5.0); LYMPH % 25.6 % (24.0-44.0); MEAN CORPUSCULAR HEMOGLOBIN 31.4 pg (27.0-33.0); MEAN CORPUSCULAR VOLUME 89.8 fl (80.0-96.0); MONO # 0.5 10^3/uL (0.0-0.8); MONO % 8.3 % (2.0-8.0); NEUTROPHILS # 3.7 10^3/uL (1.5-8.5); NEUTROPHILS % 63.7 % (36.0-66.0); PLATELET COUNT, AUTOMATED 309 10^3/uL (150-450); RED BLOOD COUNT 4.71 10^6/uL (4.30-6.10); WHITE BLOOD COUNT 5.8 10^3/uL (4.0-10.0)
[2020-12-22 13:27] LABS: ALBUMIN 4.5 GM/DL (3.2-5.2); ALT/SGPT 33 U/L (12-78); BILIRUBIN,DIRECT 0.1 MG/DL (0.0-0.2); BILIRUBIN,TOTAL 0.3 MG/DL (0.2-1.0); BLOOD UREA NITROGEN 12 MG/DL (7-18); CREATININE FOR GFR 0.88 MG/DL (0.70-1.30); FERRITIN 102 NG/ML (26-388); GLOMERULAR FILTRATION RATE > 60.0 (>60); IRON (FE) 53 UG/DL (65-175); PERCENT SATURATION 14.9 % (19.7-50.0); TOTAL IRON BINDING CAPACITY 355 UG/DL (250-450); TOTAL PROTEIN 7.9 GM/DL (6.4-8.2)
[2020-12-22 13:44] LABS: HEPATITIS B SURFACE ANTIGEN NEGATIVE (NEGATIVE)
[2020-12-24 06:07] LABS: ANTI-MITOCHONDRIAL ANTIBODY <20.0 Units (0.0-20.0); ANTI-SMOOTH MUSCLE ANTIBODY 7 Units (0-19); ANTINUCLEAR ANTIBODIES DIRECT Negative (Negative); HEPATITIS A IgG TOTAL Negative (Negative); HEPATITIS B CORE ANTIBODY IGG Positive (Negative); IGASUB2 244.2 mg/dL (73.2-301.2); IGASUB3 95.1 mg/dL (13.4-97.9); IgA SERUM (part of Subclasses) 303 mg/dL (90-386); LIVER-KIDNEY MICROSOMAL ABY <20.1 Units (0.0-20.0); TISSUE TRANSGLUTAMINASE IgA <2 U/mL (0-3)
[2020-12-24 12:54] LABS: HEPATITIS C VIRUS ABY INDEX < 0.0 INDEX (<0.8)
== END ==
LOC: M LAB 11:19
PROVIDERS: ATTEND Internal Medicine Gastroenterology
DX: R94.5 Abnormal results of liver function studies (principal); R10.13 Epigastric pain

== ENCOUNTER → 2020-12-23 | Outpatient (REF) | payer OTHER | LOC: M LAB REF 09:56 | PROVIDERS: ATTEND Internal Medicine Gastroenterology | DX: R94.5 Abnormal results of liver function studies (principal); R10.13 Epigastric pain ==

== ENCOUNTER → 2021-01-11 | Outpatient (CLI) | payer OTHER ==
--- NOTE | 2021-01-12 04:40 | REP ---
INDICATION: CHRONIC BACK PAIN WITH RECENT SEVERE EXACERBATION COMPARISON: CT dated 06/19/2020 TECHNIQUE: AP, lateral, bilateral oblique, and coned-down views of the lumbar spine. FINDINGS: Alignment and lordosis maintained. Vertebral bodies are intact. Disc spaces are relatively normal/age-appropriate. No acute fracture/compression injury or subluxation. No obvious spondylolysis or spondylolisthesis. Relatively mild early degenerative changes are identified including subtle sclerosis and very minimal early spurring primarily involving the L2-3 and superior L4 endplates. IMPRESSION: Minimal degenerative changes relatively stable compared with CT dated 06/19/2020 <Electronically signed by Milton Fung > 01/12/21 0431
== END ==
LOC: M RAD 13:04
PROVIDERS: ATTEND Physician Assistant
DX: M25.78 Osteophyte, vertebrae (principal); M54.5 Low back pain

== ENCOUNTER → 2021-01-13 | Outpatient (REF) | payer OTHER | LOC: M LAB REF 15:19 | PROVIDERS: ATTEND Surgery | DX: L72.3 Sebaceous cyst (principal) ==

== ENCOUNTER → 2021-01-17 | Outpatient (CLI) | payer OTHER | LOC: M LABSMTC 10:44 | PROVIDERS: ATTEND Anesthesiology | DX: Z01.812 Encounter for preprocedural laboratory examination (principal) ==

== ENCOUNTER 2021-01-21 09:53 | Day surgery (SDC) | payer OTHER ==
[~2021-01-21] VITALS: Ht 177.8 cm; Wt 87.5 kg
[~2021-01-21 09:53] MED LIST changes: +LIDOCAINE 2% 100MG/5ML SDV (FOR ANES.) As Ordered ONE; +NS 1,000 ML IV ONE; +fentaNYL 100 MCG/2 ML INJECTION (J3010) As Ordered ONE; +propofoL 500 MG/50 ML VIAL As Ordered ONE
[2021-01-21] MEDS ORDERED: propofoL 200 MG/20 ML VIAL As Ordered ONE ×2 (11:02→23:26)
[2021-01-21 11:57] VITALS: BP 130/69
--- NOTE | 2021-01-21 12:22 | ROOR ---
Patient Name: Anant Lu Procedure Date: 01/21/2021 10:28 AM Date of : 1975 Age: 45 Room: [facility] Gender: Male Note Status: Finalized Procedure: Upper GI endoscopy Indications: Epigastric abdominal pain Providers: Ronaldo Lagos MD Referring MD: ANNABEL ROGERS DO Requesting Provider: Medicines: Monitored Anesthesia Care Complications: No immediate complications. Procedure: Pre-Anesthesia Assessment: - Prior to the procedure, a History and Physical was performed, and patient medications and allergies were reviewed. The patient is competent. The risks and benefits of the procedure and the sedation options and risks were discussed with the patient. All questions were answered and informed consent was obtained. Patient identification and proposed procedure were verified by the physician, the nurse and the anesthesiologist in the procedure room. Mental Status Examination: alert and oriented. Airway Examination: normal oropharyngeal airway and neck mobility. Respiratory Examination: clear to auscultation. CV Examination: normal. Prophylactic Antibiotics: The patient does not require prophylactic antibiotics. Prior Anticoagulants: The patient has taken no previous anticoagulant or antiplatelet agents. ASA Grade Assessment: II - A patient with mild systemic disease. After reviewing the risks and benefits, the patient was deemed in satisfactory condition to undergo the procedure. The anesthesia plan was to use monitored anesthesia care (MAC). Immediately prior to administration of medications, the patient was re-assessed for adequacy to receive sedatives. The heart rate, respiratory rate, oxygen saturations, blood pressure, adequacy of pulmonary ventilation, and response to care were monitored throughout the procedure. The physical status of the patient was re-assessed after the procedure. The Endoscope was introduced through the mouth, and advanced to the second part of duodenum. The upper GI endoscopy was accomplished without difficulty. The patient tolerated the procedure well. Findings: Patchy, white plaques were found in the middle third of the esophagus and in the lower third of the esophagus. Cells for cytology were obtained by brushing. Verification of patient identification for the specimen was done by the physician and nurse using the patient's name, date and medical record number. Estimated blood loss was minimal. The Z-line was irregular and was found 41 cm from the incisors. Scattered mild inflammation characterized by erythema, friability and granularity was found in the gastric antrum. Biopsies were taken with a cold forceps for Helicobacter pylori testing. The duodenal bulb and second portion of the duodenum were normal. Impression: - Esophageal plaques were found, suspicious for candidiasis. Cells for cytology obtained. - Z-line irregular, 41 cm from the incisors. - Gastritis. Biopsied. - Normal duodenal bulb and second portion of the duodenum. Recommendation: - Patient has a contact number available for emergencies. The signs and symptoms of potential delayed complications were discussed with the patient. Return to normal activities tomorrow. Written discharge instructions were provided to the patient. - High fiber diet. - Continue present medications. - Follow an antireflux regimen. - Await pathology results. - Telephone GI clinic for pathology results in 2 weeks. - Return to primary care physician. Procedure Code(s): --- Professional --- 71748, Esophagogastroduodenoscopy, flexible, transoral; with biopsy, single or multiple Diagnosis Code(s): --- Professional --- K22.9, Disease of esophagus, unspecified K22.8, Other specified diseases of esophagus K29.70, Gastritis, unspecified, without bleeding R10.13, Epigastric pain CPT copyright 2019 [employer]. All rights reserved. The codes documented in this report are preliminary and upon surgical coder review may be revised to meet current compliance requirements. Ronaldo Lagos MD Ronaldo Lagos MD 01/21/2021 12:21:55 PM Electronically signed by Ronaldo Lagos MD Number of Addenda: 0 Note Initiated On: 01/21/2021 10:28 AM Estimated Blood Loss: Estimated blood loss was minimal.
--- NOTE | 2021-01-21 12:29 | ROOR ---
Patient Name: Anant Lu Procedure Date: 01/21/2021 10:28 AM Date of : 1975 Age: 45 Room: [facility] Gender: Male Note Status: Finalized Procedure: Colonoscopy Indications: Screening for colorectal malignant neoplasm Providers: Ronaldo Lagos MD Referring MD: ANNABEL ROGERS DO Requesting Provider: Medicines: Monitored Anesthesia Care Complications: No immediate complications. Procedure: Pre-Anesthesia Assessment: - Prior to the procedure, a History and Physical was performed, and patient medications and allergies were reviewed. The patient is competent. The risks and benefits of the procedure and the sedation options and risks were discussed with the patient. All questions were answered and informed consent was obtained. Patient identification and proposed procedure were verified by the physician, the nurse and the anesthesiologist in the procedure room. Mental Status Examination: alert and oriented. Airway Examination: normal oropharyngeal airway and neck mobility. Respiratory Examination: clear to auscultation. CV Examination: normal. Prophylactic Antibiotics: The patient does not require prophylactic antibiotics. Prior Anticoagulants: The patient has taken no previous anticoagulant or antiplatelet agents. ASA Grade Assessment: II - A patient with mild systemic disease. After reviewing the risks and benefits, the patient was deemed in satisfactory condition to undergo the procedure. The anesthesia plan was to use monitored anesthesia care (MAC). Immediately prior to administration of medications, the patient was re-assessed for adequacy to receive sedatives. The heart rate, respiratory rate, oxygen saturations, blood pressure, adequacy of pulmonary ventilation, and response to care were monitored throughout the procedure. The physical status of the patient was re-assessed after the procedure. The Colonoscope was introduced through the anus and advanced to the terminal ileum, with identification of the appendiceal orifice and IC valve. The colonoscopy was performed without difficulty. The patient tolerated the procedure well. The quality of the bowel preparation was good. The terminal ileum, ileocecal valve, appendiceal orifice, and rectum were photographed. Scope insertion time was 3 minutes. Scope withdrawal time was 8 minutes. The total duration of the procedure was 12 minutes. Findings: The perianal and digital rectal examinations were normal. The terminal ileum appeared normal. Five sessile polyps were found in the recto-sigmoid colon, transverse colon and ascending colon. The polyps were 4 to 8 mm in size. These polyps were removed with a cold snare. Resection and retrieval were complete. Verification of patient identification for the specimen was done by the physician and nurse using the patient's name, date and medical record number. Estimated blood loss was minimal. A few small-mouthed diverticula were found in the sigmoid colon. There was no evidence of diverticular bleeding. Non-bleeding external and internal hemorrhoids were found during retroflexion. The hemorrhoids were medium-sized. Impression: - The examined portion of the ileum was normal. - Five 4 to 8 mm polyps at the recto-sigmoid colon, in the transverse colon and in the ascending colon, removed with a cold snare. Resected and retrieved. - Mild diverticulosis in the sigmoid colon. There was no evidence of diverticular bleeding. - Non-bleeding external and internal hemorrhoids. Recommendation: - Patient has a contact number available for emergencies. The signs and symptoms of potential delayed complications were discussed with the patient. Return to normal activities tomorrow. Written discharge instructions were provided to the patient. - High fiber diet. - Continue present medications. - Await pathology results. - Repeat colonoscopy in 3 - 5 years for surveillance based on pathology results. - Telephone GI clinic for pathology results in 2 weeks. - Return to primary care physician. Procedure Code(s): --- Professional --- 12306, Colonoscopy, flexible; with removal of tumor(s), polyp(s), or other lesion(s) by snare technique Diagnosis Code(s): --- Professional --- Z12.11, Encounter for screening for malignant neoplasm of colon K64.8, Other hemorrhoids K63.5, Polyp of colon K57.30, Diverticulosis of large intestine without perforation or abscess without bleeding CPT copyright 2019 [employer]. All rights reserved. The codes documented in this report are preliminary and upon process analyst review may be revised to meet current compliance requirements. Ronaldo Lagos MD Ronaldo Lagos MD 01/21/2021 12:28:27 PM Electronically signed by Ronaldo Lagos MD Number of Addenda: 0 Note Initiated On: 01/21/2021 10:28 AM Estimated Blood Loss: Estimated blood loss was minimal.
[2021-01-21] MEDS ORDERED: ROCURONIUM BROMIDE 50 MG/5 ML VIAL As Ordered ONE (20:50)
[2021-01-21] MEDS ORDERED: LIDOCAINE 2% 100MG/5ML SDV (FOR ANES.) As Ordered ONE (20:50)
[2021-01-21] MEDS ORDERED: MIDAZOLAM INJ 2MG/2ML VIAL (J2250 PER 1MG) As Ordered ONE (20:51)
[2021-01-21] MEDS ORDERED: fentaNYL 100 MCG/2 ML INJECTION (J3010) As Ordered ONE (20:51)
[2021-01-21] MEDS ORDERED: dexameTHASONE 4 MG/ML 1ML VIAL (J1100 PER 1MG) As Ordered ONE (20:52)
[2021-01-21] MEDS ORDERED: ONDANSETRON 4MG/2ML VIAL As Ordered ONE (20:52)
== END 2021-01-21 12:31 | disposition home or self-care (01) ==
LOC: M OPP 09:53
PROVIDERS: ATTEND Internal Medicine Gastroenterology
DX: Z12.11 Encounter for screening for malignant neoplasm of colon (principal); K52.9 Noninfective gastroenteritis and colitis, unspecified; R10.13 Epigastric pain; K63.5 Polyp of colon; K57.30 Diverticulosis of large intestine without perforation or abscess without bleeding; K64.8 Other hemorrhoids; D13.1 Benign neoplasm of stomach; K22.8 Other specified diseases of esophagus; K29.70 Gastritis, unspecified, without bleeding; I10 Essential (primary) hypertension; F41.9 Anxiety disorder, unspecified; F17.210 Nicotine dependence, cigarettes, uncomplicated; Z79.899 Other long term (current) drug therapy
CPT/HCPCS: 43239; 45385; 88104; 88305; J3010

== ENCOUNTER 2021-05-09 11:57 | Emergency (ER) | payer OTHER ==
[~2021-05-09] VITALS: Ht 175.3 cm; Wt 96.8 kg
[~2021-05-09 11:57] MED LIST changes: -LIDOCAINE 2% 100MG/5ML SDV (FOR ANES.) As Ordered ONE; -NS 1,000 ML IV ONE; -fentaNYL 100 MCG/2 ML INJECTION (J3010) As Ordered ONE; -propofoL 500 MG/50 ML VIAL As Ordered ONE
--- NOTE | 2021-05-09 12:38 | REP ---
INDICATION: CHEST PAIN. COMPARISON: Comparison chest x-ray September 06, 2020. TECHNIQUE: Portable upright AP chest radiograph. FINDINGS: The lungs are well inflated and free of infiltrate. Pleural angles are sharp. Heart size is normal. Pulmonary vasculature is not increased. EKG monitoring electrodes are seen. IMPRESSION: No active disease. <Electronically signed by Layo Sierra > 05/09/21 [id number]
[2021-05-09 12:48] LABS: BASO % 0.7 % (0.0-1.0); EOS # 0.1 10^3/uL (0.0-0.5); EOS % 1.7 % (0.0-3.0); HEMATOCRIT 47.6 % (42.0-52.0); HEMOGLOBIN 16.7 g/dl (13.5-17.5); LYMPH # 1.2 10^3/uL (1.5-5.0); LYMPH % 19.4 % (24.0-44.0); MEAN CORPUSCULAR HEMOGLOBIN 33.9 pg (27.0-33.0); MEAN CORPUSCULAR HGB CONC 35.1 g/dl (32.0-36.5); MEAN CORPUSCULAR VOLUME 96.6 fl (80.0-96.0); MONO # 0.6 10^3/uL (0.0-0.8); MONO % 9.9 % (2.0-8.0); NEUTROPHILS % 67.1 % (36.0-66.0); PLATELET COUNT, AUTOMATED 315 10^3/uL (150-450); RED BLOOD COUNT 4.93 10^6/uL (4.30-6.10)
[2021-05-09 13:25] LABS: ALBUMIN 4.3 GM/DL (3.2-5.2); ALT/SGPT 121 U/L (12-78); BILIRUBIN,DIRECT 0.1 MG/DL (0.0-0.2); BILIRUBIN,TOTAL 0.5 MG/DL (0.2-1.0); BLOOD UREA NITROGEN 10 MG/DL (7-18); CALCIUM LEVEL 9.7 MG/DL (8.5-10.1); CARBON DIOXIDE LEVEL 25 MEQ/L (21-32); CHLORIDE LEVEL 104 MEQ/L (98-107); CREATININE FOR GFR 0.86 MG/DL (0.70-1.30); GLOMERULAR FILTRATION RATE > 60.0 (>60); GLUCOSE, FASTING 115 MG/DL (70-100); LIPASE 119 U/L (73-393); NT-PRO BNP 19 PG/ML (<125); POTASSIUM SERUM 4.7 MEQ/L (3.5-5.1); SODIUM LEVEL 137 MEQ/L (136-145); TOTAL PROTEIN 8.6 GM/DL (6.4-8.2)
[2021-05-09] MEDS ORDERED: ISOVUE-370 76% 100ML VIAL As Ordered ONE (13:39)
[2021-05-09] MEDS ORDERED: KETOROLAC 30 MG/ML 1ML VIAL IV ONE (13:40)
--- NOTE | 2021-05-09 14:13 | REP ---
INDICATION: chest pain/ abdominal pain through to back; r/o TAA/AAA. COMPARISON: Comparison CT angio study September 06, 2020.. TECHNIQUE: Contrast dose: 100 ML of Isovue [address] technique: Helical scanning is acquired and overlapping 1.5 mm and contiguous 3 mm axial images are reformatted. In addition, maximum intensity projection and multiplanar re-formation images are generated in sagittal and coronal imaging projections. FINDINGS: There is good opacification in the pulmonary arterial tree. There is no evidence of vessel cut off or filling defect to suggest pulmonary embolus. Homogeneous opacity is seen in the thoracic aorta. There is no evidence of aneurysm or dissection. There are stable left paratracheal and AP window region lymph nodes. The largest of these has a short axis dimension of 9 mm. There are small pretracheal lymph nodes which are unchanged as well. No pleural or pericardial effusion is seen. No hilar mass lesion is observed. Lung window settings demonstrate a 5 mm benign perifissural nodule in the left lower lobe, page 45 of 103 in series 407 of today's study. No other pulmonary nodule is seen. No infiltrate, mass, or atelectasis is seen. In the upper abdomen, there is moderate diffuse fatty infiltration of the liver. No adrenal abnormality is seen. The visualized upper abdominal structures are otherwise unremarkable. IMPRESSION: No CT evidence of pulmonary embolus. No CT evidence of thoracic aortic dissection or aneurysm. Moderate fatty infiltration of the liver. Otherwise no acute disease. <Electronically signed by Layo Sierra > 05/09/21 [id number]
--- NOTE | 2021-05-09 14:20 | REP ---
INDICATION: chest pain/ abdominal pain through to back; r/o TAA/AAA COMPARISON: /09/06/2020, 06/19/2020 TECHNIQUE: CT angiogram of the abdomen and pelvis was performed with intravenous administration of 100 cc of Isovue 370, without oral contrast. 3D MIP reconstruction images performed. FINDINGS: Abdominal aorta: No aneurysm or dissection. Lung bases: Unremarkable. Liver: Fatty infiltration liver is again noted it is not enlarged. No focal mass or biliary dilatation. Gallbladder: No calcified stone or mass. Spleen: Measures 14 x 9.1 x 4.1 cm with an elongated appearance the splenic index is 522 with normal range considered less than 480 so this is only minimal enlargement. No adjacent ascites. Adrenals: Normal. Pancreas: Normal. Kidneys: Normal. Small and large bowel: Unremarkable. Free fluid: None. Adenopathy: None. Appendix: Not inflamed. Normal. Pelvis: Bladder without stone, mass or wall thickening. No pelvic lymphadenopathy or other acute finding. No ventral or inguinal hernia. Osseous structures: Unremarkable. IMPRESSION: Negative CT angiogram abdomen and pelvis. No abdominal aortic aneurysm or dissection. Major vessels off the aorta show no significant stenosis or aneurysm. Bowel loops unremarkable. No adenopathy, mass or free air. No ascites. No gallstones or hiatal hernia evident. Fatty infiltration of the liver without any acute hepatic abnormality. No other finding. <Electronically signed by Wilmar Coleman > 05/09/21 [id number]
[2021-05-09] MEDS ORDERED: diazePAM 10MG/2ML SYRINGE (J3360 PER 5MG) IV ONE (15:25)
[2021-05-09 16:19] VITALS: BP 145/94
[2021-05-09] MEDS ORDERED: METH-1164 PO (16:38)
[2021-05-09] MEDS ORDERED: NAPR-885 PO (16:38)
--- NOTE | 2021-05-09 20:39 | ECGEPIP ---
[facility] - ED Test Date: 2021-05-09 Pat Name: CK DOUGLAS Department: Room: - Gender: Male Manager Medical Writing: : 1975 Requested By: Mara Rodriges Order Number: [id number] Reading MD: Mara Rodriges Measurements Intervals [place] Rate: 97 P: 30 MD: 146 QRS: 31 QRSD: 84 T: 12 QT: 316 QTc: 401 Interpretive Statements Normal sinus rhythm NSTTW abnormalities similar 09/07/20 Electronically Signed on 05-09-2021 20:38:35 EDT by Mara Rodriges
== END 2021-05-09 17:15 | disposition home or self-care (01) ==
LOC: M ED 11:57
DX: M54.5 Low back pain (principal); R07.89 Other chest pain; R06.02 Shortness of breath; I10 Essential (primary) hypertension; K21.9 Gastro-esophageal reflux disease without esophagitis; Z79.899 Other long term (current) drug therapy; F17.210 Nicotine dependence, cigarettes, uncomplicated
CPT/HCPCS: 71045; 71275; 74174; 80048; 80076; 81001; 83690; 83880; 84443; 85025; 93005; 93041; 94760; 96374; 96375; 99284; J1885; J3360; Q9967